=== PATIENT | female | born 1985 | race Hispanic/Latino ===

== ENCOUNTER 2021-10-08 07:20 | Emergency (ER) | payer MEDICARE ==
[~2021-10-08] VITALS: Ht 162.6 cm; Wt 90.7 kg
[2021-10-08] MEDS ORDERED: ONDANSETRON ODT4 MG PO (09:17)
== END 2021-10-08 09:21 | disposition home or self-care (01) ==
LOC: ER 07:35
DX: O26.893 Other specified pregnancy related conditions, third trimester (principal); J06.9 Acute upper respiratory infection, unspecified; Z20.822 Contact with and (suspected) exposure to COVID-19
CPT/HCPCS: 99282; U0002